=== PATIENT | male | born 1985 | race Caucasian/White ===

== ENCOUNTER 2017-11-09 18:34 | Emergency (ER) | payer OTHER ==
[2017-11-09] MEDS ORDERED: ONDANSETRON DISINTEGRATING 4 MG TAB PO ONE (18:57)
[2017-11-09] MEDS ORDERED: OXYCODONE/APAP 5/325 TAB PO ONE (18:57)
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
[2017-11-09] MEDS ORDERED: OXYCODONE/APAP 5/325MG PREPACK#4 BTL TAKEHOME ONE (19:54)
[2017-11-09 20:04] VITALS: BP 111/54
== END 2017-11-09 20:06 | disposition home or self-care (01) ==
DX: S42.022A Displaced fracture of shaft of left clavicle, initial encounter for closed fracture (principal); V86.55XA Driver of 3- or 4- wheeled all-terrain vehicle (ATV) injured in nontraffic accident, initial encounter; Y99.8 Other external cause status; Y93.89 Activity, other specified